=== PATIENT | male | born 1975 | race Caucasian/White ===

== ENCOUNTER → 2022-11-03 | Outpatient (CLI) | payer BC ==
--- NOTE | 2022-11-03 10:56 | CA ---
Exercise Stress Test Report Name: Norman Beckford Exam Date: 11/03/2022 09:53 Exam Location: [facility] Stress Ht (in): 70 Wt (lb): 300 BSA: 2.48 Ordering Phys: Mateus Schmid DO Referring Phys: SCHMID Technologist: Clemente Culver Age: 47 Gender: M : 1975 Procedure CPT: Indications: I10 HTN ICD-10 Codes: Patient History: Medications: LISINOPRIL Meds past 24 hrs: Pretest Chest Pain: STRESS TEST Ace Protocol Exercise Duration (min:sec): 07:[address] Depressions (mm): Angina Score: Dias Score: Resting HR (bpm): 97 Peak HR (bpm): 171 Resting BP (mmHg): 122 / 89 Peak BP (mmHg): 181 / 70 MPHR: 171 Target HR: 145 % MPHR: 100 METS: 8.9 Total Dose: Peak Dose: Atropine: Double Product: 40679 BP Response: Stress Termination: TARGET HR REACHED/MAX EXERTION Stress Symptoms: NO SYMPTOMS Stress Summary: ECG ANALYSIS Resting ECG: Stress ECG: CONCLUSIONS Excellent exercise tolerance Normal EKG in response to exercise Dr. Nikhil Munson MD (Electronically Signed) Final Date: 03 November 2022 10:56
--- NOTE | 2022-11-03 11:48 | CA ---
Transthoracic Echo Report Name: Norman Beckford Age: 47 Gender: M : 1975 Exam Date: 11/03/2022 08:35 Exam Location: [facility] Ht (in): 71 Wt (lb): 200 Ordering Physician: Mateus Schmid DO Attending/Referring Phys: Computer Operations Manager Cr Adams RDCS Procedure CPT: Indications: I10 HTN Cardiac Hx: HTN; Hypercholesterolemia; Obesity; Technical Quality: Fair Contrast 1: Total Dose (mL): Contrast 2: Total Dose (mL): MEASUREMENTS (Male / Female) Normal Values 2D ECHO LV Diastolic Diameter PLAX 5.6 cm 4.2 - 5.9 / 3.9 - 5.3 cm LV Systolic Diameter PLAX 2.5 cm IVS Diastolic Thickness 0.9 cm 0.6 - 1.0 / 0.6 - 0.9 cm LVPW Diastolic Thickness 1.1 cm 0.6 - 1.0 / 0.6 - 0.9 cm LV Relative Wall Thickness 0.4 RV Internal Dim ED PLAX 2.7 cm LVOT Diameter 2.4 cm LA Systolic Diameter LX 3.4 cm 3.0 - 4.0 / 2.7 - 3.8 cm LV Diastolic Volume MOD BP 137.9 cm??? 67 - 155 / 56 - 104 cm??? LV Systolic Volume MOD BP 71.4 cm??? 22 - 58 / 19 - 49 cm??? LV Ejection Fraction MOD BP 48.3 % >= 55 % LV Diastolic Volume MOD 4C 147.2 cm??? LV Systolic Volume MOD 4C 106.3 cm??? LV Ejection Fraction MOD 4C 27.8 % LV Diastolic Length 4C 8.8 cm LV Systolic Length 4C 7.9 cm LV Diastolic Volume MOD 2C 121.8 cm??? LV Systolic Volume MOD 2C 33.8 cm??? LV Ejection Fraction MOD 2C 72.3 % LV Diastolic Length 2C 8.3 cm LV Systolic Length 2C 5.5 cm Ascending Aorta Diameter 3.8 cm M-MODE Aortic Root Diameter MM 4.4 cm LA Systolic Diameter MM 3.0 cm LA Ao Ratio MM 0.7 MV E Point Septal Separation 0.3 cm AV Cusp Separation MM 2.1 cm DOPPLER AV Peak Velocity 96.5 cm/s AV Peak Gradient 3.7 mmHg Mitral E Point Velocity 83.4 cm/s Mitral A Point Velocity 69.7 cm/s Mitral E to A Ratio 1.2 MV Deceleration Time 198.6 ms MV E' Velocity 11.6 cm/s Mitral E to MV E' Ratio 7.2 TR Peak Velocity 92.2 cm/s TR Peak Gradient 3.4 mmHg Right Ventricular Systolic Press 8.4 mmHg PV Peak Velocity 90.4 cm/s PV Peak Gradient 3.3 mmHg FINDINGS Left Ventricle Left ventricular ejection fraction is estimated at 55-60 %. Borderline left ventricular hypertrophy. Abnormal left ventricular diastolic filling pattern. Normal basal systolic function. Mild left ventricular dilatation. Right Ventricle Normal right ventricular size and function. Right Atrium Normal right atrial size. Left Atrium Normal left atrial size. Mitral Valve Mitral valve thickened. Trace to mild mitral regurgitation. Aortic Valve Trileaflet aortic valve. Tricuspid Valve Trace to mild tricuspid regurgitation. Pulmonic Valve Pulmonic valve not well visualized. Pericardium Normal pericardium. Echo free space anterior to the right ventricle likely represents a fat pad. Aorta Normal size aortic root and proximal ascending aorta. CONCLUSIONS Normal LV systolic function Normal RV systolic function Overall normal intracardiac valves The study technically is a slightly difficult Previewed by: Dr. Nikhil Munson MD (Electronically Signed) Final Date: 03 November 2022 11:48
== END | disposition home or self-care (01) ==
LOC: RADECHMAIN 08:15
PROVIDERS: ATTEND Family Medicine
DX: I10 Essential (primary) hypertension (principal)
CPT/HCPCS: 93017; 93306

== ENCOUNTER → 2024-06-19 | Outpatient (CLI) | payer BC ==
--- NOTE | 2024-07-03 09:06 | EM ---
EVENT MONITOR STUDY: Seven days event monitor. INDICATION: Cardiac arrhythmia. The patient was monitored for 7 days. The baseline rhythm appeared to be sinus mechanism with a minimum heart rate of 50 beats per minute, max heart rate was 120 beats per minute, and average heart rate of 78 beats per minute. No atrial fibrillation noted and no SVT noted and no sinus pause or sinus arrest. The patient did have only first-degree AV block. No second-or third-degree AV block noted. No significant sinus pause or sinus arrest. CONCLUSION: 1. Sinus rhythm as a baseline mechanism. 2. Only first-degree AV block noted. 3. No significant sinus pause or sinus arrest. 4. Rare PACs and rare PVCs. MMODL / IJN: [id number] /
== END | disposition home or self-care (01) ==
LOC: RADECHMAIN 07:14
PROVIDERS: ATTEND Family Medicine
DX: I49.3 Ventricular premature depolarization (principal); R00.2 Palpitations; I44.0 Atrioventricular block, first degree
CPT/HCPCS: 93270

== ENCOUNTER → 2024-11-18 | Outpatient (CLI) | payer BC ==
--- NOTE | 2024-11-18 14:30 | US ---
EXAMINATION TYPE: US scrotum with doppler. DATE OF EXAM: 11/18/2024 COMPARISON: NONE CLINICAL INDICATION: Male, 49 years old with history of N50.812 LEFT TESTICULAR PAIN; left testicular pain. Pt states he thinks he had an infection on left side because he has been on antibiotics for 2 weeks and pain has gone away. TECHNIQUE: Grayscale, color Doppler and spectral Doppler imaging of the scrotum. FINDINGS: EXAM MEASUREMENTS: TESTICLES: Right Testicle: 4.0 x 3.2 x 2.2 cm Left Testicle: 5.1 x 3.3 x 2.5 cm EPIDIDYMIS HEAD: Right Epididymis: 0.9 cm Left Epididymis: 0.9 cm Doppler performed to assess for testicular vascularity; good bilateral color flow and spectral wavefo irais are seen. . Presence of hydroceles: seen bilaterally. Left side appears to have debris inside Presence of varicoceles: Bilaterally, greater on left IMPRESSION: Satisfactory symmetric blood flow to both testicles. [facility], , 11/18/2024 2:28 PM
== END | disposition home or self-care (01) ==
LOC: RADUSWWP 13:43
PROVIDERS: ATTEND Family Medicine
DX: N50.812 Left testicular pain (principal); N50.82 Scrotal pain
CPT/HCPCS: 76870; 93975